=== PATIENT | female | born 1995 | race Caucasian/White ===

== ENCOUNTER 2016-08-21 21:31 | Emergency (ER) | payer MEDICAID ==
[2016-08-21 21:53] VITALS: TEMP 98.2
[2016-08-21] MEDS ORDERED: ALBUTEROL INH PREPACK MDI TAKEHOME ONE (22:28)
--- NOTE | 2016-08-21 22:29 | EDPHY ---
H & P Stated Complaint: STARTED METHADONE, MOM WORRIED ABOUT BREATHING AND LETHARGY Time Seen by Provider: 08/21/16 22:13 HPI/ROS: Chief Complaint: Medication side effect, wheezing HPI: 21-year-old female with a history of chronic narcotic abuse and asthma started methadone 2 days ago. Mom is bring her in today with concerns that she is a little more somnolent than normal. She is also concerned the patient has been having increasing wheezing and difficulty breathing. Patient states that she does not feel particularly unwell. It is important to note that her her boyfriend 5 days ago after a narcotic overdose. Patient denies being suicidal or at this time. No fevers or chills. Has a chronic nonproductive cough. No chest pain. No abdominal pain. No nausea vomiting or diarrhea. ROS: 10 point Review of Systems is negative except as noted in the HPI. PMH: Narcotic dependence Medications: Methadone, 30 mg a day Albuterol (noncompliant) Allergies: No known drug allergies Social History: Positive for smoking smoking, no alcohol, these started methadone for chronic heroin abuse Family History: non-contributory Physical Exam: Gen: Awake, Alert, No Distress HEENT: Nose: no rhinorrhea Eyes: PERRLA, EOMI Mouth: Moist mucosa Neck: Supple, no JVD Chest: nontender, diffuse expiratory wheeze Heart: S1, S2 normal, no murmur Abd: Soft, non-tender, no guarding Back: no CVA tenderness, no midline tenderness Ext: no edema, non-tender Skin: no rash Neuro: CN II-XII intact, Sensation grossly intact, Strength 5/5 in bilateral upper and lower extremities - Personal History LMP (Females 10-55): 15-21 Days Ago Current Tetanus/Diphtheria Vaccine: Yes Current Tetanus Diphtheria and Acellular Pertussis (TDAP): Yes Tetanus Vaccine Date: <10 years - Medical/Surgical History Hx Asthma: Yes Hx Chronic Respiratory Disease: No Hx Diabetes: No Hx Cardiac Disease: No Hx Renal Disease: No Hx Cirrhosis: No Hx Alcoholism: No Hx HIV/AIDS: No Hx Splenectomy or Spleen Trauma: No Other PMH: depression, IVDA METHADONE USE - Social History Smoking Status: Current every day smoker Constitutional: Initial Vital Signs Temperature (C) 36.8 C 08/21/16 21:51 Heart Rate 95 08/21/16 21:51 Respiratory Rate 18 08/21/16 21:51 Blood Pressure 140/84 H 08/21/16 21:51 O2 Sat (%) 97 08/21/16 21:51 O2 Delivery Mode Room Air Allergies/Adverse Reactions: No Known Allergies Allergy (Verified 08/21/16 21:53) Home Medications: Medication Instructions Recorded QUEtiapine FUMARATE [Seroquel 300 mg PO HS #30 tab 04/19/15 300mg (*)] Methadone HCl 30 mg PO 08/21/16 Departure - Departure Disposition: Home, Routine, Self-Care Clinical Impression: Methadone adverse reaction, Asthma Condition: Good Instructions: Methadone (By mouth), Asthma (ED) Additional Instructions: You may use your inhaler 2 puffs every 4 hours as needed for wheeze. Always use a spacer using inhaler. Follow up with your doctor to methadone clinic for dose adjustment at your next appointment. Follow up with your physician for evaluation of your asthma and initiation of a controlled inhaler. Referrals: Soni Del Rio [Primary Care Provider] - As per Instructions
[2016-08-21 23:26] VITALS: BP 130/92; PULSE 88; RESP 16; O2SAT 93
== END 2016-08-21 23:27 | disposition home or self-care (01) ==
DX: J45.909 Unspecified asthma, uncomplicated (principal); T40.3X5A Adverse effect of methadone, initial encounter; F17.200 Nicotine dependence, unspecified, uncomplicated

== ENCOUNTER 2016-09-17 21:39 | Emergency (ER) | payer MEDICAID ==
[2016-09-17] MEDS ORDERED: ONDANSETRON 4 MG/2 ML VIAL ONE (22:15)
[2016-09-17] MEDS ORDERED: LORazepam 2 MG/ML INJ IVP ONE (22:20)
[2016-09-17] MEDS ORDERED: ONDANSETRON 4 MG/2 ML VIAL IVP ONE (22:20)
--- NOTE | 2016-09-17 22:24 | EDPHY ---
H & P Time Seen by Provider: 09/17/16 22:05 HPI/ROS: CHIEF COMPLAINT: "I am withdrawing from heroin" HISTORY OF PRESENT ILLNESS: 21-year-old female in the ER with mother complaining of acute her withdrawal, last used 24 hours ago. [facility] and they recommend she come to the ER prior to returning to the [facility]. She is complaining of nausea, vomiting, abdominal cramping, myalgia, anxiety. REVIEW OF SYSTEMS: A ten point review of systems was performed and is negative with the exception of the items mentioned in the HPI PAST MEDICAL & SURGICAL HISTORY: History of heroin use SOCIAL HISTORY: Last used heroin 24 hours ago PHYSICAL EXAM (Prior to examination, patient consented to physical exam, hands were washed and my usual and customary physical exam procedures followed) 1) GENERAL: Well-developed, well-nourished, alert and oriented. Appears uncomfortable and anxious 2) HEAD: Normocephalic, atraumatic 3) HEENT: Pupils equal, round, reactive to light bilaterally. Sclera anicteric. Nasopharynx, oropharynx, clear, no lesions. Dry mucous membranes 4) NECK: Full range of motion, no meningeal signs. 5) LUNGS: Clear auscultation bilaterally, no wheezes, no rhonchi, no retractions. 6) HEART: Regular rate and rhythm, no murmur, no heave, no gallop. 7) ABDOMEN: No guarding, no rebound, no focal tenderness, negative McBurney's, negative Dotson's, negative Rovsing's, negative peritoneal sign, unable to elicit abdominal pain on exam 8) MUSCULOSKELETAL: Moving all extremities, no focal areas of tenderness, no obvious trauma. No peripheral edema or discoloration. 9) BACK: No CVA tenderness 10) SKIN: positive Pilar erection 11) Psychiatric: Patient is oriented X 3, there is no agitation. DIFFERENTIAL DIAGNOSIS: in no particular include but limited to acute surgical abdominal pathology, acute appendicitis, acute heroin withdrawal Smoking Status: Current every day smoker Constitutional: Initial Vital Signs Temperature (C) 36.7 C 09/17/16 21:43 Heart Rate 102 H 09/17/16 21:43 Respiratory Rate 18 09/17/16 21:43 Blood Pressure 116/73 09/17/16 21:43 O2 Sat (%) 100 09/17/16 21:43 O2 Delivery Mode Room Air Allergies/Adverse Reactions: No Known Allergies Allergy (Verified 08/21/16 21:53) Home Medications: Medication Instructions Recorded QUEtiapine FUMARATE [Seroquel 300 mg PO HS #30 tab 04/19/15 300mg (*)] Methadone HCl 30 mg PO 08/21/16 MDM/Departure - MDM Medications Given: Discontinued Medications Lorazepam (Ativan Injection) 1 mg IVP EDNOW ONE Stop: 09/17/16 22:21 Last Admin: 09/17/16 22:36 Dose: 1 mg Ondansetron HCl (Zofran) 4 mg IVP EDNOW ONE Stop: 09/17/16 22:21 Last Admin: 09/17/16 22:20 Dose: 4 mg ED Course/Re-evaluation: 11:28 p.m.: Re-evaluation, sleeping. Easily woken. Plan will be [facility] to [facility]. Her mother will drive her there. - Depart Disposition: Home, Routine, Self-Care Clinical Impression: Heroin abuse Nausea & vomiting Qualifiers: Vomiting type: unspecified Vomiting Intractability: non-intractable Qualified Code(s): R11.2 - Nausea with vomiting, unspecified Condition: Good Instructions: Acute Nausea and Vomiting (ED) Additional Instructions: Return to the ER if you are unable to keep food or fluid down or if you develop any new symptoms. Referrals: Soni Del Rio [Primary Care Provider] - As per Instructions
[2016-09-17] MEDS ORDERED: CHLORDIAZEPOXIDE 25MG PREPK#6 BTL TAKEHOME ONE (22:30)
[2016-09-18 00:07] VITALS: BP 112/81; PULSE 93; RESP 16; TEMP 98.4; O2SAT 98
== END 2016-09-18 00:08 | disposition home or self-care (01) ==
DX: F11.10 Opioid abuse, uncomplicated (principal); R11.2 Nausea with vomiting, unspecified; F17.200 Nicotine dependence, unspecified, uncomplicated
CPT/HCPCS: 96374; J2060; J2405

== ENCOUNTER 2017-02-11 19:05 | Emergency (ER) | payer MEDICAID ==
[2017-02-11 19:26] VITALS: TEMP 98.6
--- NOTE | 2017-02-11 20:01 | EDPHY ---
H & P Stated Complaint: injected heroin this am, mom wants to make sure she is safe to sleep Time Seen by Provider: 02/11/17 19:21 - Personal History LMP (Females 10-55): 15-21 Days Ago Tetanus Vaccine Date: <10 years - Medical/Surgical History Hx Asthma: Yes Hx Chronic Respiratory Disease: No Hx Diabetes: No Hx Cardiac Disease: No Hx Renal Disease: No Hx Cirrhosis: No Hx Alcoholism: No Hx HIV/AIDS: No Hx Splenectomy or Spleen Trauma: No Other PMH: depression, IV drug use - Social History Smoking Status: Current every day smoker Constitutional: Initial Vital Signs Temperature (C) 37.0 C 02/11/17 19:24 Heart Rate 109 H 02/11/17 19:24 Respiratory Rate 22 H 02/11/17 19:24 Blood Pressure 130/72 H 02/11/17 19:24 O2 Sat (%) 97 02/11/17 19:24 O2 Delivery Mode Room Air Allergies/Adverse Reactions: No Known Allergies Allergy (Verified 02/11/17 19:20) Home Medications: Medication Instructions Recorded QUEtiapine FUMARATE [Seroquel 300 mg PO HS #30 tab 04/19/15 300mg (*)] Naloxone HCl [Narcan] 4 mg NS DAILY PRN #1 spray 02/11/17 Medical Decision Making ED Course/Re-evaluation: CHIEF COMPLAINT: Medical screening HISTORY OF PRESENT ILLNESS: 21-year-old female who last used heroin this morning. Her mother is trying to take her home and she is trying to stop using heroin. She does not want to go to [facility]. She would like to go home. She understands she will most likely withdrawal but she has been through that before. Her mother is concerned that she is in danger and wanted her checked before she takes her home. REVIEW OF SYSTEMS: A 10 point review of systems was performed and is negative with the exception of the elements mentioned in the history of present illness. PHYSICAL EXAM: HR, BP, O2 Sat, RR. Temp noted General Appearance: Alert, well hydrated, appropriate, and non-toxic appearing. Head: Atraumatic without scalp tenderness or obvious injury Eyes: Pupils equal, round, reactive to light and accommodation, EOMI, no trauma , no injection. Ears: Clear bilaterally, no perforation, normal landmarks Nose: Atraumatic, no rhinorrhea, clear. Throat: There is no erythema or exudates, no lesions, normal tonsils, mucus membranes moist. Neck: Supple, 2+ carotid upstroke, nontender, no lymphadenopathy. Respiratory: No retractions, no distress, no wheezes, and no accessory muscle use. Lungs are clear to auscultation bilaterally. Cardiovascular: Regular rate and rhythm, no murmurs, rubs, or gallops. Bilateral carotid, radial, dorsalis pedis, and posterior tibial pulses intact. Good capillary refill all extremities. Gastrointestinal: Abdomen is soft, nontender, non-distended, no masses, no rebound, no guarding, no peritoneal signs. Musculoskeletal: Normal active ROM of all extremities, atraumatic. Neurological: Alert, appropriate, and interactive. The patient has normal DTRs and non-focal cranial nerves, motor, sensory, and cerebellar exam. Skin: No rashes, good turgor, no nodules on palpation. Past medical history: Heroin abuse Past surgical history: Noncontributory Family history: Noncontributory Social history: Single, not employed, abuses opiates, uses cigarettes, uses alcohol and other drugs DIFFERENTIAL DIAGNOSIS: Includes but is not limited to polysubstance abuse, withdrawal symptoms, current heroin use, current alcohol is MEDICAL DECISION MAKING: This patient is sober. I had a long discussion with her mother. She is not actually in danger from the withdrawal of heroin. She refused to go to detox or [facility]. Patient claims that she does not want to use any more. Mother is going to take her home and then try and find her help after her court date tomorrow. I have prescribed nasal Narcan for her mother to have an for the patient to have. She is medically cleared Departure - Departure Disposition: Home, Routine, Self-Care Clinical Impression: Polysubstance abuse Condition: Good Instructions: Polysubstance Abuse (ED) Referrals: NONE *PRIMARY CARE P,. [Primary Care Provider] - As per Instructions Prescriptions: Naloxone HCl [Narcan] 4 mg NS DAILY PRN #1 spray PRN Reason: Poor breathing blue lips
[2017-02-11 20:21] VITALS: BP 129/78; PULSE 107; RESP 16; O2SAT 95
== END 2017-02-11 20:00 | disposition home or self-care (01) ==
LOC: CED 19:05
DX: F19.10 Other psychoactive substance abuse, uncomplicated (principal); J45.909 Unspecified asthma, uncomplicated; F17.200 Nicotine dependence, unspecified, uncomplicated

== ENCOUNTER 2017-03-03 11:59 | Emergency (ER) | payer MEDICAID ==
[2017-03-03 12:18] VITALS: BP 124/86; PULSE 90; RESP 16; TEMP 98.1; O2SAT 97
--- NOTE | 2017-03-03 12:27 | EDPHY ---
H & P Stated Complaint: std and hep c request, heroin with used needle few weeks ago Time Seen by Provider: 03/03/17 12:19 HPI/ROS: CHIEF COMPLAINT: Requests testing HISTORY OF PRESENT ILLNESS: The patient is a 21-year-old female who is now sober for the last week after using multiple drugs heavily including IV narcotics and having multiple sex partners. She states that she feels generally tired and fatigued and slightly nauseous. Her mom thinks this is from withdrawal. Mom states that she had these similar symptoms when she withdrew. Patient is requesting testing for hepatitis C, HIV and STDs. She is currently not having any vaginal bleeding discharge or discomfort. REVIEW OF SYSTEMS: Constitutional: Fatigue, no fevers EENTM: denies: blurred vision, double vision, nose congestion Respiratory: denies: cough, shortness of breath Cardiac: denies: chest pain, irregular heart rate, lightheadedness, palpitations Gastrointestinal/Abdominal: denies: abdominal pain, diarrhea, nausea, vomiting, blood streaked stools Genitourinary: denies: dysuria, frequency, hematuria, pain Musculoskeletal: denies: joint pain, muscle pain Skin: denies: lesions, rash, jaundice, bruising Neurological: denies: headache, numbness, paresthesia, tingling, dizziness, weakness Hematologic/Lymphatic: denies: blood clots, easy bleeding, easy bruising Immunologic/allergic: denies: HIV/AIDS, transplant EXAM: GENERAL: Well-appearing, well-nourished and in no acute distress. HEAD: Atraumatic, normocephalic. EYES: Pupils equal round and reactive to light, extraocular movements intact, sclera anicteric, conjunctiva are normal. ENT: TMs normal, nares patent, oropharynx clear without exudates. Moist mucous membranes. NECK: Normal range of motion, supple without lymphadenopathy or JVD. LUNGS: Breath sounds clear to auscultation bilaterally and equal. No wheezes rales or rhonchi. HEART: Regular rate and rhythm without murmurs, rubs or gallops. ABDOMEN: Soft, nontender, normoactive bowel sounds. No guarding, no rebound. No masses appreciated. BACK: No CVA tenderness, no spinal tenderness, step-offs or deformities EXTREMITIES: Normal range of motion, no pitting or edema. No clubbing or cyanosis. NEUROLOGICAL: Cranial nerves II through XII grossly intact. Normal speech, normal gait. 5/5 strength, normal movement in all extremities, normal sensation PSYCH: Normal mood, normal affect. SKIN: Warm, dry, normal turgor, no visible rashes or lesions. Source: Patient Exam Limitations: No limitations - Personal History LMP (Females 10-55): 15-21 Days Ago Current Tetanus Diphtheria and Acellular Pertussis (TDAP): Yes Tetanus Vaccine Date: <10 years - Medical/Surgical History Hx Asthma: Yes Hx Chronic Respiratory Disease: No Hx Diabetes: No Hx Cardiac Disease: No Hx Renal Disease: No Hx Cirrhosis: No Hx Alcoholism: No Hx HIV/AIDS: No Hx Splenectomy or Spleen Trauma: No Other PMH: depression, IV drug use/heroin/meth smoke thc - Family History Significant Family History: No pertinent family hx - Social History Smoking Status: Current every day smoker Alcohol Use: Heavy Drug Use: Cocaine, Heroin, Marijuana Constitutional: Initial Vital Signs Temperature (C) 36.7 C 03/03/17 12:12 Heart Rate 90 03/03/17 12:12 Respiratory Rate 16 03/03/17 12:12 Blood Pressure 124/86 H 03/03/17 12:12 O2 Sat (%) 97 03/03/17 12:12 O2 Delivery Mode Room Air Allergies/Adverse Reactions: No Known Allergies Allergy (Verified 03/03/17 12:18) Home Medications: Medication Instructions Recorded QUEtiapine FUMARATE [Seroquel 300 mg PO HS #30 tab 04/19/15 300mg (*)] Vivitrol 03/03/17 Medical Decision Making ED Course/Re-evaluation: The patient is likely suffering mild withdrawal symptoms. I did offer to do STD testing although she is not currently having any symptoms. The hepatitis C and HIV test will need to be done at a primary care physician's office however. In the and she and her mom decided to forego testing here in simply go to the regular doctor. They tried to get in today but were told they did could not get an appointment until tomorrow. They will go tomorrow and make these request. They declined further workup or treatment. they do ask for it note for work stating that they were here. Differential Diagnosis: Partial list of the Differential diagnosis considered include but were not limited to; polysubstance abuse, withdrawal and although unlikely based on the history and physical exam, I also considered hepatitis, HIV, STD, . I discussed these differential diagnoses and the plan with the patient as well as the usual and expected course. The patient understands that the diagnosis is provisional and that in medicine we are not always correct and that further workup is often warranted. Usual and customary warnings were given. All of the patient's questions were answered. The patient was instructed to return to the emergency department should the symptoms at all worsen or return, otherwise to followup with the physician as we discussed. Departure - Departure Disposition: Home, Routine, Self-Care Clinical Impression: Withdrawal syndrome Qualifiers: Substance type: other psychoactive substance Qualified Code(s): F19.939 - Other psychoactive substance use, unspecified with withdrawal, unspecified Condition: Fair Instructions: Polysubstance Abuse (ED) Referrals: [facility],. [Primary Care Provider] - As per Instructions Stand Alone Forms: Statement of Treatment
== END 2017-03-03 12:30 | disposition home or self-care (01) ==
LOC: CED 11:59
DX: F19.939 Other psychoactive substance use, unspecified with withdrawal, unspecified (principal); F17.200 Nicotine dependence, unspecified, uncomplicated; J45.909 Unspecified asthma, uncomplicated

== ENCOUNTER 2017-05-19 14:53 | Emergency (ER) | payer MEDICAID ==
[2017-05-19 15:06] VITALS: BP 133/69; PULSE 92; RESP 18; TEMP 98.2; O2SAT 97
--- NOTE | 2017-05-19 15:30 | EDPHY ---
H & P Time Seen by Provider: 05/19/17 15:00 HPI/ROS: This patient has a sore throat 4/10 intensity achy in nature. She describes onset a few days ago with worsening over the past 24 hr. She still able tolerate p.o. intake without difficulty. She has associated nasal congestion and a headache that feels like it is originating from her frontal sinus to her described as pressure in nature 4/10 intensity left more than right frontal sinus. She had subjective fevers last night with no other associated symptoms. Her mother brought her in by private vehicle for evaluation. ROS: No high fevers or chills. No significant fatigue. No other constitutional symptoms HEENT: No ear pain. No change in hearing. No change in voice. Pulmonary: No coughing. Cardiovascular: No complaints GI: No nausea vomiting or abdominal pain : No complaints Integumentary: No skin rash Musculoskeletal: No arthralgias. 10 point ROS is otherwise negative Social History: Former IVDA-clean for 90 days Smoking Status: Current every day smoker Physical Exam: Physical Exam Vital signs are normal. General: No acute distress HEENT: Nose: Clear discharge bilaterally. Mild left frontal sinus tenderness to percussion. Ears: External canals and tympanic membranes are clear with no erythema or abnormal findings bilaterally. Oropharynx: Mild erythema with no exudates. No dysphonia. No drooling or stridor. Eyes: Pupils equal and react to light. Extraocular motions are intact. Neck: Supple with no meningismus. No lymphadenopathy Lungs: Very faint wheeze on the right side with no rales or rhonchi. No increased work of breathing. Cardiac: Regular rate and rhythm with no murmur gallop or rub Skin: No rash or pallor. Neuro: Alert with no focal deficits noted. Initial differential diagnosis: Viral URI with viral pharyngitis, strep pharyngitis, doubt bacterial sinusitis. Constitutional: Initial Vital Signs Temperature (C) 36.8 C 05/19/17 15:03 Heart Rate 92 05/19/17 15:03 Respiratory Rate 18 05/19/17 15:03 Blood Pressure 133/69 H 05/19/17 15:03 O2 Sat (%) 97 05/19/17 15:03 O2 Delivery Mode Room Air Allergies/Adverse Reactions: No Known Allergies Allergy (Verified 03/03/17 12:18) Home Medications: Medication Instructions Recorded QUEtiapine FUMARATE [Seroquel 300 mg PO HS #30 tab 04/19/15 300mg (*)] Vivitrol 03/03/17 Fluticasone Nasal [Flonase Nasal 2 sprays NASAL DAILY #1 mdi 05/19/17 [place] (RX)] MDM/Departure - MDM Diagnostics: Rapid strep is negative ED Course/Re-evaluation: Rapid strep is negative. I counseled patient regarding viral URI and viral pharyngitis. She is very faint wheeze and reports that as a child she has asthma but no significant exacerbations last couple years. She does still have an albuterol inhaler at home which she states she will use for any development of wheezing or coughing. Patient appears clinically well with no "red flag findings "she understands need to return should she develop any significant worsening despite treatment plan. - Depart Disposition: Home, Routine, Self-Care Clinical Impression: Viral pharyngitis, Viral URI Condition: Good Instructions: How to Stop Smoking (ED), Pharyngitis (ED) Additional Instructions: Diagnosis: Viral pharyngitis 2. Viral upper respiratory infection Your rapid strep test is negative today Plan: Humidifier Guaifenesin mucolytic Flonase steroid nasal spray to help relieve the sinus pressure Ibuprofen for discomfort and also to reduce the swelling. Symptoms should improve over the next 3-7 days. Quit smoking. Use your albuterol inhaler if he developed more wheezing or fevers develop a cough. Return for any significant worsening despite the treatment plan. Stand Alone Forms: Work Excuse Prescriptions: Fluticasone Nasal [Flonase Nasal [place] (RX)] 2 sprays NASAL DAILY #1 mdi Referrals: Doctor Not,On Staff, MD [Primary Care Provider] - As per Instructions
== END 2017-05-19 15:36 | disposition home or self-care (01) ==
LOC: CED 14:53
DX: J02.8 Acute pharyngitis due to other specified organisms (principal); B97.89 Other viral agents as the cause of diseases classified elsewhere; J06.9 Acute upper respiratory infection, unspecified; F17.200 Nicotine dependence, unspecified, uncomplicated
CPT/HCPCS: 87880-PO

== ENCOUNTER 2017-05-27 19:50 | Emergency (ER) | payer MEDICAID ==
[2017-05-27 20:07] VITALS: BP 150/92; PULSE 83; RESP 16; TEMP 98.4; O2SAT 97
[2017-05-27] MEDS ORDERED: LEVALBUTEROL 1.25 MG/3 ML DEYVIAL IH ONE (20:07)
--- NOTE | 2017-05-27 20:14 | EDPHY ---
H & P Time Seen by Provider: 05/27/17 19:57 HPI/ROS: I saw this patient here 8 days ago for viral URI and viral pharyngitis. She had mild sinus headache at that time from nasal congestion in she presents now with a cough. I prescribed Flonase and she reports that she had resolution of her sinus pressure and headache with that treatment. She now has minimal coryza. However, over the past 2 days she has developed a cough occasionally productive of sputum. She reports a bronchial pain when she coughs and has mild wheezing. She had history of asthma as a child but has not used inhalers for a few years. Her mother drove her here by private vehicle for evaluation of her symptoms. ROS: No fevers or chills. No other constitutional symptoms HEENT: No sore throat at this point. No ear pain. No sinus pain. Pulmonary: No pleuritic pain. No hemoptysis. No respiratory distress Cardiovascular: No heart palpitations lightheadedness or leg swelling. GI: No vomiting. No nausea. No diarrhea. No abdominal pain. Integumentary: No skin rash Psychiatric: No complaints. No insomnia. 7 point ROS is otherwise negative. Past Medical/Surgical History: Mild asthma Former IVDA Psychiatric Smoking Status: Current every day smoker Physical Exam: General Appearance: Alert, no distress. Eyes: Pupils equal and round no pallor or injection. ENT, Mouth: Mucous membranes moist. Respiratory: Faint wheeze bilaterally. No rales or rhonchi are appreciated. No respiratory distress or increased work of breathing. Cardiovascular: Regular rate and rhythm. No murmur gallop rub. No peripheral edema. Neurological: GCS of 15 without focal deficits. Skin: Warm and dry, no rashes. Extremities are symmetrical, full range of motion. Psychiatric: Mood and affect are normal DIFFERENTIAL DIAGNOSIS: After history and physical exam differential diagnosis was considered for URI with asthma exacerbation, viral bronchitis, doubt pneumonia Constitutional: Initial Vital Signs Temperature (C) 36.9 C 05/27/17 20:05 Heart Rate 83 05/27/17 20:05 Respiratory Rate 16 05/27/17 20:05 Blood Pressure 150/92 H 05/27/17 20:05 O2 Sat (%) 97 05/27/17 20:05 O2 Delivery Mode Room Air Allergies/Adverse Reactions: No Known Allergies Allergy (Verified 05/27/17 20:02) Home Medications: Medication Instructions Recorded QUEtiapine FUMARATE [Seroquel 300 mg PO HS #30 tab 04/19/15 300mg (*)] Fluticasone Nasal [Flonase Nasal 2 sprays NASAL DAILY #1 mdi 05/19/17 [place] (RX)] Albuterol Hfa Anes Only [Proair 2 puffs IH Q4 PRN #1 mdi 05/27/17 Hfa Icu (*)] Albuterol Hfa Anes Only [Proair 60 puffs IH 05/27/17 Hfa Icu (*)] Azithromycin [Zithromax] 250 mg PO DAILY #4 tab 05/27/17 Fluticasone Hfa 220 Mcg [Flovent 2 puffs IH DAILY #1 mdi 05/27/17 220 MCG Hfa MDI (*)] Ibuprofen 05/27/17 Medroxyprogesterone Acet 150 mg IM 05/27/17 [Depo-Provera] MDM/Departure - MDM Medications Given: Discontinued Medications Levalbuterol (Xopenex 1.25mg Neb) 1.25 mg IH EDNOW ONE Stop: 05/27/17 20:08 Last Admin: 05/27/17 20:17 Dose: 1.25 mg ED Course/Re-evaluation: Initial peak flow of 340 predicted of 475 Xopenex neb albuterol makes her very tremulous and anxious per her report) No significant improvement with the Xopenex. Discussion: Given lack of significant bronchospasm currently but some wheezing and decreased peak flow, patient's findings are consistent primarily with bronchitis. I counseled regarding this. Given that she is a smoker will cover her with macrolide antibiotic in addition to the plan for her to continue her albuterol and start Flovent steroid inhaler in addition. Gave her a peak flow meter to take home to monitor her peak flow. She will follow up with [facility] for any ongoing symptoms and she understands the need to return should she have any significant worsening of symptoms despite the treatment plan - Depart Disposition: Home, Routine, Self-Care Clinical Impression: Acute bronchitis Qualifiers: Bronchitis organism: unspecified organism Qualified Code(s): J20.9 - Acute bronchitis, unspecified Asthma Qualifiers: Asthma severity: mild Asthma persistence: intermittent Asthma complication type : uncomplicated Qualified Code(s): J45.20 - Mild intermittent asthma, uncomplicated Condition: Good Instructions: How to Stop Smoking (ED), Acute Bronchitis (ED), Asthma (ED) Additional Instructions: Diagnoses: 1. Acute bronchitis 2. History of asthma Plan: Humidifier Albuterol inhaler with spacer for cough, wheeze or shortness of breath Flovent inhaler daily for the next 10-14 days Zithromax antibiotic No work tomorrow Monitor your peak flow with treatment. When her feeling well you should be 450- 475 Return for any significant worsening despite treatment plan Stand Alone Forms: Work Excuse Prescriptions: Albuterol Hfa Anes Only [Proair Hfa Icu (*)] 2 puffs IH Q4 PRN #1 mdi PRN Reason: Wheezing Azithromycin [Zithromax] 250 mg PO DAILY #4 tab Fluticasone Hfa 220 Mcg [Flovent 220 MCG Hfa MDI (*)] 2 puffs IH DAILY #1 mdi Referrals: [facility],. [Primary Care Provider] - As per Instructions
[2017-05-27] MEDS ORDERED: AZITHROMYCIN 250 MG TAB PO ONE (20:46)
== END 2017-05-27 21:00 | disposition home or self-care (01) ==
LOC: CED 19:50
DX: J20.9 Acute bronchitis, unspecified (principal); J45.20 Mild intermittent asthma, uncomplicated; F17.200 Nicotine dependence, unspecified, uncomplicated

== ENCOUNTER → 2017-09-03 | Emergency (ER) | payer MEDICAID ==
[~2017-09-03] MED LIST: BENZONATATE 100 MG CAP PO ONE
[2017-09-03 22:01] VITALS: BP 121/83
--- NOTE | 2017-09-03 22:04 | EDPHY ---
H & P Time Seen by Provider: 09/03/17 21:54 HPI/ROS: CHIEF COMPLAINT: Cough, runny nose HISTORY OF PRESENT ILLNESS: The patient is a 22-year-old female whose mom brings her to the emergency department complaining of a persistent cough. She also has a watery runny nose and wonders if it is from allergies because she works outside. Mom states that she also has a history of asthma. She has not had any difficulty breathing. No fevers. REVIEW OF SYSTEMS: Constitutional: See HPI EENTM: denies: See HPI Respiratory: See HPI Cardiac: denies: chest pain, irregular heart rate, lightheadedness, palpitations Gastrointestinal/Abdominal: denies: abdominal pain, diarrhea, nausea, vomiting, blood streaked stools Genitourinary: denies: dysuria, frequency, hematuria, pain Musculoskeletal: denies: joint pain, muscle pain Skin: denies: lesions, rash, jaundice, bruising Neurological: denies: headache, numbness, paresthesia, tingling, dizziness, weakness Hematologic/Lymphatic: denies: blood clots, easy bleeding, easy bruising Immunologic/allergic: denies: HIV/AIDS, transplant EXAM: GENERAL: Well-appearing, well-nourished and in no acute distress. HEAD: Atraumatic, normocephalic. EYES: Pupils equal round and reactive to light, extraocular movements intact, sclera anicteric, conjunctiva are normal. ENT: TMs normal, nares patent, oropharynx clear without exudates. Moist mucous membranes. NECK: Normal range of motion, supple without lymphadenopathy or JVD. LUNGS: Breath sounds clear to auscultation bilaterally and equal. No wheezes rales or rhonchi. HEART: Regular rate and rhythm without murmurs, rubs or gallops. ABDOMEN: Soft, nontender, normoactive bowel sounds. No guarding, no rebound. No masses appreciated. BACK: No CVA tenderness, no spinal tenderness, step-offs or deformities EXTREMITIES: Normal range of motion, no pitting or edema. No clubbing or cyanosis. NEUROLOGICAL: Cranial nerves II through XII grossly intact. Normal speech, normal gait. 5/5 strength, normal movement in all extremities, normal sensation PSYCH: Normal mood, normal affect. SKIN: Warm, dry, normal turgor, no visible rashes or lesions. Source: Patient, Family Exam Limitations: No limitations - Personal History Tetanus Vaccine Date: <10 years - Medical/Surgical History Hx Asthma: Yes Hx Chronic Respiratory Disease: No Hx Diabetes: No Hx Cardiac Disease: No Hx Renal Disease: No Hx Cirrhosis: No Hx Alcoholism: No Hx HIV/AIDS: No Hx Splenectomy or Spleen Trauma: No Other PMH: Asthma, depression, IV drug use/heroin/meth smoke thc - Family History Significant Family History: No pertinent family hx - Social History Smoking Status: Current every day smoker Alcohol Use: Sober Drug Use: Other Constitutional: Initial Vital Signs Temperature (C) 37.0 C 09/03/17 21:56 Heart Rate 90 09/03/17 21:56 Respiratory Rate 16 09/03/17 21:56 Blood Pressure 121/83 H 09/03/17 21:56 O2 Sat (%) 96 09/03/17 21:56 O2 Delivery Mode Room Air Allergies/Adverse Reactions: No Known Allergies Allergy (Verified 09/03/17 21:52) Home Medications: Medication Instructions Recorded QUEtiapine FUMARATE [Seroquel 300 mg PO HS #30 tab 04/19/15 300mg (*)] Albuterol Hfa Anes Only [Proair 60 puffs IH 05/27/17 Hfa Icu (*)] Medroxyprogesterone Acet 150 mg IM 05/27/17 [Depo-Provera] Benzonatate [Tessalon Pearles (RX)] 100 mg PO BID #10 cap 09/03/17 Cetirizine HCl/Pseudoephedrine 1 each PO BID #20 tab.er.12h 09/03/17 [Zyrtec-D Tablet] Vivatrol 09/03/17 Wellbutrin 150mg SR (*) 09/03/17 diphenhydrAMINE [Benadryl 50 MG 50 mg PO Q4-6PRN PRN #30 cap 09/03/17 (OTC)] Medical Decision Making ED Course/Re-evaluation: The patient is well appearing. No wheezes on exam, dry cough and runny nose consistent with postnasal drip. We discussed antihistamines. Mom prefers Zyrtec. I will also prescribe her cough syrup. They declined x-ray at this time. Differential Diagnosis: Partial list of the Differential diagnosis considered include but were not limited to; postnasal drip, allergic rhinitis, bronchitis and although unlikely based on the history and physical exam, I also considered pneumonia, asthma exacerbation. I discussed these differential diagnoses and the plan with the patient as well as the usual and expected course. The patient understands that the diagnosis is provisional and that in medicine we are not always correct and that further workup is often warranted. Usual and customary warnings were given. All of the patient's questions were answered. The patient was instructed to return to the emergency department should the symptoms at all worsen or return, otherwise to followup with the physician as we discussed. - Data Points Medications Given: Discontinued Medications Benzonatate (Tessalon Pearles) 100 mg PO EDNOW ONE Stop: 09/03/17 22:06 Last Admin: 09/03/17 22:12 Dose: 100 mg Departure - Departure Disposition: Home, Routine, Self-Care Clinical Impression: Cough in adult Allergic rhinitis Qualifiers: Allergic rhinitis trigger: other Allergic rhinitis seasonality: unspecified seasonality Qualified Code(s): J30.89 - Other allergic rhinitis Condition: Fair Instructions: Benzonatate (By mouth), Diphenhydramine (By mouth), Cetirizine/ Pseudoephedrine (By mouth), Allergic Rhinitis (ED), Postnasal Drip (DC) Referrals: Selene Rich MD [[facility] [place] Primary Care Provider] - As per Instructions Stand Alone Forms: Work Excuse Prescriptions: Benzonatate [Tessalon Pearles (RX)] 100 mg PO BID #10 cap Cetirizine HCl/Pseudoephedrine [Zyrtec-D Tablet] 1 each PO BID #20 tab.er.12h diphenhydrAMINE [Benadryl 50 MG (OTC)] 50 mg PO Q4-6PRN PRN #30 cap PRN Reason: Itching
== END | disposition home or self-care (01) ==
LOC: CED 21:48
DX: J30.89 Other allergic rhinitis (principal); F17.200 Nicotine dependence, unspecified, uncomplicated

== ENCOUNTER 2018-03-04 20:12 | Emergency (ER) | payer MEDICAID ==
[2018-03-04] MEDS ORDERED: NS 1,000 ML IV ONE (20:35)
--- NOTE | 2018-03-04 20:38 | EDPHY ---
H & P Stated Complaint: Burning on urination x2 days. Time Seen by Provider: 03/04/18 20:17 HPI/ROS: Chief Complaint: Burning with urination, flu-like symptoms HPI: 22-year-old woman presenting with 1 day of urinary urgency and burning with urination. Patient has had flu-like symptoms for the last 3 days with nausea, diarrhea, body aches, fevers and chills. Denies any cough or shortness of breath. She does have a history of IV drug use and was using heroin foreign 5 days ago. Has had some chills but has not checked her temperature at home. Last menstrual. Is several months, she has a Depakote shot. No vaginal bleeding or discharge. No lightheadedness or fainting. No abdominal pain. Some pain with urination. ROS: 10 systems were reviewed and were negative except those elements noted in the HPI. PMH: Depression, asthma, IV drug abuse Social History: Positive smoking, no alcohol, recent heroin use Family History: non-contributory Physical Exam: Gen: Awake, Alert, No Distress, tachycardic, afebrile HEENT: Nose: no rhinorrhea Eyes: PERRLA, EOMI Mouth: Moist mucosa Neck: Supple, no JVD Chest: nontender, lungs clear to auscultation Heart: S1, S2 normal, tachycardic, no murmur Abd: Soft, non-tender, no guarding Back: no CVA tenderness, no midline tenderness Ext: no edema, non-tender Skin: no rash Neuro: CN II-XII intact, Sensation grossly intact, Strength 5/5 in bilateral upper and lower extremities - Personal History LMP (Females 10-55): 1-7 Days Ago Current Tetanus/Diphtheria Vaccine: Yes Current Tetanus Diphtheria and Acellular Pertussis (TDAP): Yes Tetanus Vaccine Date: <10 years - Medical/Surgical History Hx Asthma: Yes Hx Chronic Respiratory Disease: No Hx Diabetes: No Hx Cardiac Disease: No Hx Renal Disease: No Hx Cirrhosis: No Hx Alcoholism: No Hx HIV/AIDS: No Hx Splenectomy or Spleen Trauma: No Other PMH: Asthma, depression, IV drug use/heroin/meth smoke thc, PTSD - Social History Smoking Status: Current every day smoker Constitutional: Initial Vital Signs Temperature (C) 36.8 C 03/04/18 20:19 Heart Rate 116 H 03/04/18 20:19 Respiratory Rate 16 03/04/18 20:19 Blood Pressure 140/89 H 03/04/18 20:19 O2 Sat (%) 94 03/04/18 20:19 O2 Delivery Mode Nasal Cannula O2 (L/minute) 2 Allergies/Adverse Reactions: No Known Allergies Allergy (Verified 09/03/17 21:52) Home Medications: Medication Instructions Recorded QUEtiapine FUMARATE [Seroquel 300 mg PO HS #30 tab 04/19/15 300mg (*)] Albuterol Hfa Anes Only [Proair 60 puffs IH 05/27/17 Hfa Icu (*)] Medroxyprogesterone Acet 150 mg IM 05/27/17 [Depo-Provera] Wellbutrin 150mg SR (*) 09/03/17 Nitrofurantoin Monohyd/M-Cryst 100 mg PO BID #8 capsule 03/04/18 [Macrobid 100 mg Capsule] Medical Decision Making ED Course/Re-evaluation: Patient is now admitting that she last used heroin 2 hr prior to presentation. She was worried that she would be treated as a drug seeker and she told me this initially. She is afebrile. Her tachycardia has resolved. She is getting IV fluids. Awaiting blood work and urine results. Patient's CBC and chemistry are normal. She is resting comfortably. She is under the influence of opioids at this time. Patient is improved. She is not appear septic or meet SIRS criteria at this time. Symptoms consistent with 0. Intoxication. She is hydrated here. Heart rate is improved. She is afebrile. She has normal white count. Will start her on Macrobid for urinary tract infection symptoms. I do not see any evidence of bacteremia at this time. She has been observed for any complications forearm opioid use and is maintaining her airway and without anydifficulties - Data Points Laboratory Results: 03/04/18 21:11 POC Sodium 142 mEq/L mEq/L (135-145) POC Potassium 3.4 mEq/L mEq/L (3.3-5.0) POC Chloride 107.0 mEq/L mEq/L (97-110) POC Total CO2 23 mEq/L mEq/L (22-31) POC BUN 15 mg/dL mg/dL (7-23) POC Creatinine 0.9 mg/dL mg/dL (0.6-1.0) POC Glucose 88 mg/dL mg/dL (70-100) POC Calcium 9.7 mg/dL mg/dL (8.5-10.4) Medications Given: Discontinued Medications Acetaminophen (Tylenol) 1,000 mg PO EDNOW ONE Stop: 03/04/18 20:44 Last Admin: 03/04/18 20:46 Dose: 1,000 mg Sodium Chloride (Ns) 1,000 mls @ 0 mls/hr IV ONCE ONE PRN Reason: Wide Open Stop: 03/04/18 20:36 Last Admin: 03/04/18 20:47 Dose: 1,000 mls Ondansetron HCl (Zofran) 4 mg IVP EDNOW ONE Stop: 03/04/18 22:05 Last Admin: 03/04/18 22:07 Dose: 4 mg Point of Care Test Results: CBC CBC Collection Date 03/04/18 CBC Collection Time 21:10 WBC 7.9 RBC 4.48 HGB 13.8 HCT 39.9 PLT 180 Neut # 6.2 Neut 78.6 LYMPH # 1.1 LYMPH 13.6 Other WBC # 0.6 Other WBC 7.8 MCV 89.1 Chemistry 03/04/18 21:11 POC Sodium 142 mEq/L mEq/L (135-145) POC Potassium 3.4 mEq/L mEq/L (3.3-5.0) POC Chloride 107.0 mEq/L mEq/L (97-110) POC Total CO2 23 mEq/L mEq/L (22-31) POC BUN 15 mg/dL mg/dL (7-23) POC Creatinine 0.9 mg/dL mg/dL (0.6-1.0) POC Glucose 88 mg/dL mg/dL (70-100) POC Calcium 9.7 mg/dL mg/dL (8.5-10.4) Influenza PCR Flu Nasal Swab Collection Date 03/04/18 Flu Nasal Swab Collection Time 21:10 Influenza A Result Not Detected Influenza B Result Not Detected Departure - Departure Disposition: Home, Routine, Self-Care Clinical Impression: Urinary tract infection, Opioid abuse Condition: Good Instructions: Urinary Tract Infection in Women (ED), Opioid Use Disorder (ED), Nitrofurantoin (By mouth) Additional Instructions: Please seek help to discontinue using opioids. Please take your full course of antibiotics. Follow up with primary care physician in 3-4 days if her symptoms are not improving. Return to the emergency department for uncontrolled nausea vomiting, fevers, chills, or any other concerns. Referrals: [facility],. [Clinic] - As per Instructions Prescriptions: Nitrofurantoin Monohyd/M-Cryst [Macrobid 100 mg Capsule] 100 mg PO BID #8 capsule
[2018-03-04] MEDS ORDERED: ACETAMINOPHEN 500 MG TAB PO ONE (20:43)
[2018-03-04] MEDS ORDERED: ONDANSETRON 4 MG/2 ML VIAL IVP ONE (22:04)
[2018-03-04] MEDS ORDERED: NITROFURANTOIN 100MG PREPACK#2 BTL TAKEHOME ONE (22:08)
[2018-03-04 22:25] VITALS: BP 130/77
[2018-03-04] MEDS ORDERED: ONDANSETRON 4MG PREPACK#2 BTL TAKEHOME ONE (22:31)
== END 2018-03-04 22:45 | disposition home or self-care (01) ==
LOC: CED 20:12
DX: N39.0 Urinary tract infection, site not specified (principal); F11.10 Opioid abuse, uncomplicated
CPT/HCPCS: 80048-PO; 96374; J2405

== ENCOUNTER 2018-03-21 07:34 | Emergency (ER) | payer MEDICAID ==
--- NOTE | 2018-03-21 07:36 | EDPHY ---
H & P Time Seen by Provider: 03/21/18 07:35 Constitutional: Initial Vital Signs Temperature (C) 36.8 C 03/21/18 07:35 Heart Rate 74 03/21/18 07:35 Respiratory Rate 18 03/21/18 07:35 Blood Pressure 171/104 H 03/21/18 07:35 O2 Sat (%) 97 03/21/18 07:35 O2 Delivery Mode Room Air Allergies/Adverse Reactions: No Known Allergies Allergy (Verified 03/21/18 07:38) Home Medications: Medication Instructions Recorded QUEtiapine FUMARATE [Seroquel 300 mg PO HS #30 tab 04/19/15 300mg (*)] Albuterol Hfa Anes Only [Proair 60 puffs IH 05/27/17 Hfa Icu (*)] Medroxyprogesterone Acet 150 mg IM 05/27/17 [Depo-Provera] Wellbutrin 150mg SR (*) 09/03/17 Nitrofurantoin Monohyd/M-Cryst 100 mg PO BID #8 capsule 03/04/18 [Macrobid 100 mg Capsule] Ondansetron Odt [Zofran Odt 4 mg 4 mg PO Q4 PRN #10 tab 03/21/18 (RX)] Medical Decision Making ED Course/Re-evaluation: CHIEF COMPLAINT: Nausea and vomiting HISTORY OF PRESENT ILLNESS: The patient is a 22 y/o female with a history of IV heroin abuse arriving via EMS complaining of nausea, vomiting, and diarrhea. She recently had an 18 day heroin damon and subsequently went into detox. She last used heroin on Thursday, 6 days ago. Yesterday she had a Vivitrol shot without any immediate side effects. Starting at 04:00 today, 3.5 hours ago, she started to have sudden onset nausea and vomiting. These symptoms are similar to prior detox symptoms, but since she has already gone through detox she became concerned. She would also like infectious disease testing as she has not had any tests in a while. She denies history of abdominal surgery. No headache, chest pain, shortness of breath, urinary complaints, numbness, paresthesias, fevers. REVIEW OF SYSTEMS: A comprehensive 10 system review of systems is otherwise negative aside from the elements mentioned in the history of present illness and medical decision making. PHYSICAL EXAM: HR, BP, O2 Sat, RR. Temp noted General Appearance: Alert, well hydrated, appropriate, and non-toxic appearing. Head: Atraumatic without scalp tenderness or obvious injury Eyes: Pupils equal, round, reactive to light and accommodation, EOMI, no trauma , no injection. Ears: Clear bilaterally, no perforation, normal landmarks Nose: Atraumatic, no rhinorrhea, clear. Throat: There is no erythema or exudates, no lesions, normal tonsils, mucus membranes dry. Neck: Supple, 2+ carotid upstroke, nontender, no lymphadenopathy. Respiratory: No retractions, no distress, no wheezes, and no accessory muscle use. Lungs are clear to auscultation bilaterally. Cardiovascular: Regular rate and rhythm, no murmurs, rubs, or gallops. Bilateral carotid, radial, dorsalis pedis, and posterior tibial pulses intact. Good capillary refill all extremities. Gastrointestinal: Abdomen is soft, nontender, non-distended, no masses, no rebound, no guarding, no peritoneal signs. Musculoskeletal: Normal active ROM of all extremities, atraumatic. Neurological: Alert, appropriate, and interactive. The patient has normal DTRs and non-focal cranial nerves, motor, sensory, and cerebellar exam. Skin: No rashes, good turgor, no nodules on palpation. Past medical history: IV Heroin abuse Past surgical history: Denies Family history: Denies Social history: Lives in [place], employed, single DIAGNOSTICS/PROCEDURES/CRITICAL CARE TIME: Not indicated DIFFERENTIAL DIAGNOSIS: The differential diagnosis for the patient's nausea and vomiting included but was not limited to gastroenteritis, gastritis, appendicitis, and medication side effect. MEDICAL DECISION MAKING: The patient is a 22 y/o female with a history of IV heroin abuse arriving via EMS presenting with nausea, vomiting, and diarrhea onset at 4:00, 3.5 hours ago. She went through detox 6 days ago and received a Vivitrol shot yesterday. On exe, she has a soft and benign abdomen. Her mucus membranes are dry. Labs ordered including infectious disease labs; 2L IV NS and 4mg IV Zofran. 0929: Patient passed PO challenge. She is feeling much better after medication; I will discharge her home with Zofran. Her infectious disease tests are still pending. I have advised her to follow up with her PCP. Return precautions provided; patient is comfortable with this plan. - Data Points Laboratory Results: 03/21/18 07:45 Beta HCG, Qual NEGATIVE Hepatitis A IgM Ab Pending Hep Bs Antigen Pending Hep B Core IgM Ab Pending Hepatitis C Antibody Pending HIV 1&2 Antibody Pending Medications Given: Discontinued Medications Sodium Chloride (Ns) 1,000 mls @ 0 mls/hr IV EDNOW ONE; Wide Open PRN Reason: Protocol Stop: 03/21/18 07:39 Last Admin: 03/21/18 07:49 Dose: 1,000 mls Sodium Chloride (Ns) 1,000 mls @ 0 mls/hr IV EDNOW ONE; Wide Open PRN Reason: Protocol Stop: 03/21/18 07:39 Last Admin: 03/21/18 07:50 Dose: Not Given Ibuprofen (Motrin) 800 mg PO EDNOW ONE Stop: 03/21/18 08:46 Last Admin: 03/21/18 08:47 Dose: Not Given Ondansetron HCl (Zofran) 4 mg IVP EDNOW ONE Stop: 03/21/18 07:39 Last Admin: 03/21/18 07:49 Dose: 4 mg Departure - Departure Disposition: Home, Routine, Self-Care Clinical Impression: Gastroenteritis Nausea and vomiting Qualifiers: Vomiting type: unspecified Vomiting Intractability: intractable Qualified Code( s): R11.2 - Nausea with vomiting, unspecified Condition: Good Instructions: Ondansetron (By mouth), Gastroenteritis (ED), Acute Nausea and Vomiting (ED) Additional Instructions: 1. Take Zofran as prescribed. 2. Follow-up with your primary doctor within 72 hours. 3. Return to the Emergency Department for fever, chest pain, shortness of breath , increasing pain or other worsening of condition. 4. Your infectious disease results are still pending. Please call the hospital in several days to check on the results. Referrals: [facility],. [Clinic] - As per Instructions Prescriptions: Ondansetron Odt [Zofran Odt 4 mg (RX)] 4 mg PO Q4 PRN #10 tab PRN Reason: Nausea/Vomiting, Use 1st Report Scribed for: David Mims Report Scribed by: [place] Bishop Date of Report: 03/21/18 Time of Report: 07:36
[2018-03-21] MEDS ORDERED: NS 1,000 ML IV ONE (07:38)
[2018-03-21] MEDS ORDERED: ONDANSETRON 4 MG/2 ML VIAL IVP ONE (07:38)
[2018-03-21] MEDS: NS 1,000 ML IV ONE (07:49)
[2018-03-21] MEDS ORDERED: IBUPROFEN 800 MG TAB PO ONE (08:45)
[2018-03-21 09:44] VITALS: BP 115/85
[2018-03-22 02:28] LABS: HEPATITIS A ANTIBODY IGM (BCH) NEGATIVE (NEGATIVE); HEPATITIS B CORE AB IGM NEGATIVE (NEGATIVE); HEPATITIS B SURFACE ANTIGEN NEGATIVE (NEGATIVE); HEPATITIS C ANTIBODY TOTAL NEGATIVE (NEGATIVE); HIV TYPE 1 AND 2 NEGATIVE (NEGATIVE)
== END 2018-03-21 09:44 | disposition home or self-care (01) ==
LOC: EDUNIT#
DX: K52.9 Noninfective gastroenteritis and colitis, unspecified (principal); F11.10 Opioid abuse, uncomplicated; E86.9 Volume depletion, unspecified
CPT/HCPCS: 96374; G0472; J2405

== ENCOUNTER 2018-05-27 14:08 | Emergency (ER) | payer MEDICAID ==
[2018-05-27] MEDS ORDERED: ONDANSETRON 4 MG/2 ML VIAL IVP ONE (14:22)
[2018-05-27] MEDS ORDERED: NS 1,000 ML IV ONE (14:22)
[2018-05-27] MEDS ORDERED: KETOROLAC 30 MG/1 ML SDV IVP ONE (14:22)
--- NOTE | 2018-05-27 14:25 | EDPHY ---
H & P Stated Complaint: Nausea, vomiting, diarrhea x 1 day Source: Patient Exam Limitations: No limitations - Personal History LMP (Females 10-55): Extended Cycle BCP/Inj Current Tetanus Diphtheria and Acellular Pertussis (TDAP): Yes Tetanus Vaccine Date: within 10 years - Medical/Surgical History Hx Asthma: Yes Hx Chronic Respiratory Disease: No Hx Diabetes: No Hx Cardiac Disease: No Hx Renal Disease: No Hx Cirrhosis: No Hx Alcoholism: No Hx HIV/AIDS: No Hx Splenectomy or Spleen Trauma: No Other PMH: Asthma, depression, IV drug use/heroin/meth smoke thc, PTSD - Family History Significant Family History: No pertinent family hx - Social History Smoking Status: Current every day smoker Alcohol Use: Sober Time Seen by Provider: 05/27/18 14:15 HPI/ROS: CHIEF COMPLAINT: Nausea, vomiting and diarrhea HISTORY OF PRESENT ILLNESS: The patient is a 22-year-old female with a history of asthma, depression and previous history of IV drug abuse who is been sober for over a month. She felt fine yesterday but today developed nausea vomiting and diarrhea. She has vomited several times nonbloody. Loose stool nonbloody. Not watery. No recent travel. No fevers. She complains of left upper quadrant cramping. No pain or tenderness. She denies risk of . She states that she is on the Depo shot. No urinary symptoms. No vaginal bleeding or discharge. She does reported friend who is recently ill as well. Severity: Moderate Modifying factors: None REVIEW OF SYSTEMS: Constitutional: denies: chills, fever, recent illness, recent injury EENTM: denies: blurred vision, double vision, nose congestion Respiratory: denies: cough, shortness of breath Cardiac: denies: chest pain, irregular heart rate, lightheadedness, palpitations Gastrointestinal/Abdominal: See HPI denies: blood streaked stools Genitourinary: denies: dysuria, frequency, hematuria, pain Musculoskeletal: denies: joint pain, muscle pain Skin: denies: lesions, rash, jaundice, bruising Neurological: denies: headache, numbness, paresthesia, tingling, dizziness, weakness Hematologic/Lymphatic: denies: blood clots, easy bleeding, easy bruising Immunologic/allergic: denies: HIV/AIDS, transplant 10 systems reviewed and negative except as noted EXAM: GENERAL: Well-appearing, well-nourished and in no acute distress. HEAD: Atraumatic, normocephalic. EYES: Pupils equal round and reactive to light, extraocular movements intact, sclera anicteric, conjunctiva are normal. ENT: TMs normal, nares patent, oropharynx clear without exudates. Moist mucous membranes. NECK: Normal range of motion, supple without lymphadenopathy or JVD. LUNGS: Breath sounds clear to auscultation bilaterally and equal. No wheezes rales or rhonchi. HEART: Regular rate and rhythm without murmurs, rubs or gallops. ABDOMEN: Soft, nontender, normoactive bowel sounds. No guarding, no rebound. No masses appreciated. BACK: No CVA tenderness, no spinal tenderness, step-offs or deformities EXTREMITIES: Normal range of motion, no pitting or edema. No clubbing or cyanosis. NEUROLOGICAL: Cranial nerves II through XII grossly intact. Normal speech, normal gait. 5/5 strength, normal movement in all extremities, normal sensation , normal reflexes PSYCH: Normal mood, normal affect. SKIN: Warm, dry, normal turgor, no visible rashes or lesions. (Xander qAuino) Constitutional: Initial Vital Signs Temperature (C) 37.2 C 05/27/18 14:14 Heart Rate 92 05/27/18 14:14 Respiratory Rate 16 05/27/18 14:14 Blood Pressure 138/77 H 05/27/18 14:14 O2 Sat (%) 96 05/27/18 14:14 O2 Delivery Mode Room Air Allergies/Adverse Reactions: No Known Allergies Allergy (Verified 05/27/18 14:16) Home Medications: Medication Instructions Recorded Ondansetron Odt [Zofran Odt 4 mg 4 mg PO Q4 PRN #20 tab 05/27/18 (RX)] Prozac 10 MG (*) 05/27/18 Seroquel 05/27/18 Medical Decision Making ED Course/Re-evaluation: I assumed care of the patient pending re-evaluation after fluids and medications. On re-evaluation patient was feeling better. She is able to tolerate oral fluids without difficulty. She desires to go home. We discussed return precautions. The patient was discharged home in improved condition. ( Chantel Hyatt) 2:50 p.m. the patient is doing well. She states that her cramping has resolved. She is not currently nauseous. She is receiving IV fluids. Will continue to observe. Repeat abdominal exam is benign. Care transferred to Dr. Chantel Mclain (Xander Aquino) Differential Diagnosis: Partial list of the Differential diagnosis considered include but were not limited to; gastroenteritis, dehydration and although unlikely based on the history and physical exam, I also considered the obstruction, ischemia, volvulus , appendicitis, biliary disease, perforation. I discussed these differential diagnoses and the plan with the patient as well as the usual and expected course. The patient understands that the diagnosis is provisional and that in medicine we are not always correct and that further workup is often warranted. Usual and customary warnings were given. All of the patient's questions were answered. The patient was instructed to return to the emergency department should the symptoms at all worsen or return, otherwise to followup with the physician as we discussed. (Xander Aquino) - Data Points Medications Given: Discontinued Medications Sodium Chloride (Ns) 1,000 mls @ 0 mls/hr IV EDNOW ONE; Wide Open PRN Reason: Protocol Stop: 05/27/18 14:23 Last Admin: 05/27/18 14:35 Dose: 1,000 mls Ketorolac Tromethamine (Toradol) 15 mg IVP EDNOW ONE Stop: 05/27/18 14:23 Last Admin: 05/27/18 14:39 Dose: 15 mg Ondansetron HCl (Zofran) 4 mg IVP EDNOW ONE Stop: 05/27/18 14:23 Last Admin: 05/27/18 14:35 Dose: 4 mg Departure - Departure Disposition: Home, Routine, Self-Care Clinical Impression: Gastroenteritis, Dehydration Condition: Fair Instructions: Dehydration (ED), Gastroenteritis (ED) Referrals: [facility],. [Primary Care Provider] - As per Instructions Stand Alone Forms: Work Excuse Prescriptions: Ondansetron Odt [Zofran Odt 4 mg (RX)] 4 mg PO Q4 PRN #20 tab PRN Reason: Nausea & Vomiting
[2018-05-27 15:43] VITALS: BP 116/73
== END 2018-05-27 15:34 | disposition home or self-care (01) ==
LOC: CED 14:08
DX: K52.9 Noninfective gastroenteritis and colitis, unspecified (principal); E86.0 Dehydration
CPT/HCPCS: 96361-ER; 96374-ER; 96375-ER; 99284-ER; J1885; J2405

== ENCOUNTER 2018-06-06 14:27 | Emergency (ER) | payer MEDICAID ==
[2018-06-06] MEDS ORDERED: IPRATROPIUM/ALBUTEROL 3 ML DEYVIAL IH ONE (14:38)
--- NOTE | 2018-06-06 15:14 | EDPHY ---
H & P Time Seen by Provider: 06/06/18 14:39 HPI/ROS: CHIEF COMPLAINT: Shortness of breath HISTORY OF PRESENT ILLNESS: Patient states about 3 days ago she developed upper respiratory infectious symptoms. She states she had some congestion and sore throat. About a day later she started having increased wheezing but no cough. Wheezing has continued since then and she took her last albuterol inhaler puff today. She denies any fevers, rash, nausea or vomiting. She does have some malaise she tells me. She was given a DuoNeb prior to my evaluation emergency department. Contents of 10 point review of systems otherwise negative except for what is mentioned in HPI. General Appearance: Alert, no distress. Eyes: Pupils equal and round no pallor or injection. ENT, Mouth: Mucous membranes moist. Respiratory: There are no retractions, lungs are clear to auscultation. Cardiovascular: Regular rate and rhythm. Gastrointestinal: Abdomen is soft and nontender, no masses, bowel sounds normal. Neurological: Awake, alert, no focal deficits. Skin: Warm and dry, no rashes. Musculoskeletal: Neck is supple nontender. Extremities are symmetrical, full range of motion, no edema. Psychiatric: Patient is oriented X 3, there is no agitation. Medical/surgical history: Asthma, depression, PTSD, history of IV drug use, heroin, methamphetamines. Social history: Smokes tobacco and cannabis. Smoking Status: Heavy smoker Constitutional: Initial Vital Signs Temperature (C) 37.4 C 06/06/18 14:33 Heart Rate 98 06/06/18 14:33 Respiratory Rate 20 06/06/18 14:33 Blood Pressure 137/90 H 06/06/18 14:33 O2 Sat (%) 97 06/06/18 14:33 O2 Delivery Mode Room Air Allergies/Adverse Reactions: No Known Allergies Allergy (Verified 05/27/18 14:16) Home Medications: Medication Instructions Recorded Prozac 10 MG (*) 05/27/18 Seroquel 05/27/18 Albuterol Hfa Anes Only [Proair 200 puffs IH PRN PRN 30 Days #1 mdi 06/06/18 Hfa Icu (*)] Depo-Provera 150 mg/ml (*) 06/06/18 Vivitrol 06/06/18 Medical Decision Making Differential Diagnosis: Differential diagnosis includes but is not limited to asthma exacerbation, upper respiratory infection, pneumonia, strep pharyngitis. After evaluation patient well appearing and wheezing completely resolved after single DuoNeb. No indication for steroids. Did write prescription for albuterol inhaler as patient is out and referred her to her primary care for further refills as needed. Stable for discharge. - Data Points Medications Given: Discontinued Medications Albuterol/Ipratropium (Duoneb) 3 ml IH EDNOW ONE Stop: 06/06/18 14:39 Last Admin: 06/06/18 14:41 Dose: 3 ml Departure - Departure Clinical Impression: Exacerbation of asthma Qualifiers: Asthma severity: mild Asthma persistence: intermittent Qualified Code(s): J45.21 - Mild intermittent asthma with (acute) exacerbation Condition: Good Instructions: Asthma (ED) Additional Instructions: Arturo prescription for albuterol today and use as discussed. Several puffs a day over the next few days while you are sick is fine otherwise it is for rescue use. Referrals: NONE *PRIMARY CARE P,. [Primary Care Provider] - As per Instructions [facility],. [Clinic] - As per Instructions Prescriptions: Albuterol Hfa Anes Only [Proair Hfa Icu (*)] 200 puffs IH PRN PRN 30 Days #1 mdi PRN Reason: Wheezing
[2018-06-06 15:31] VITALS: BP 124/83
== END 2018-06-06 15:32 | disposition home or self-care (01) ==
LOC: CED 14:27
DX: J45.21 Mild intermittent asthma with (acute) exacerbation (principal); F32.9 Major depressive disorder, single episode, unspecified; F43.10 Post-traumatic stress disorder, unspecified; F17.200 Nicotine dependence, unspecified, uncomplicated
CPT/HCPCS: 99283-ER

== ENCOUNTER 2018-06-08 13:13 | Emergency (ER) | payer MEDICAID ==
[2018-06-08 13:20] VITALS: BP 117/79
--- NOTE | 2018-06-08 13:51 | EDPHY ---
H & P Stated Complaint: sore throat Time Seen by Provider: 06/08/18 13:50 - Personal History LMP (Females 10-55): Over 28 Days Ago Current Tetanus Diphtheria and Acellular Pertussis (TDAP): Yes Tetanus Vaccine Date: within 10 years - Medical/Surgical History Hx Asthma: Yes Hx Chronic Respiratory Disease: No Hx Diabetes: No Hx Cardiac Disease: No Hx Renal Disease: No Hx Cirrhosis: No Hx Alcoholism: No Hx HIV/AIDS: No Hx Splenectomy or Spleen Trauma: No Other PMH: Asthma, depression, IV drug use/heroin/meth smoke thc, PTSD - Social History Smoking Status: Light smoker Constitutional: Initial Vital Signs Temperature (C) 37.1 C 06/08/18 13:17 Heart Rate 110 H 06/08/18 13:17 Respiratory Rate 18 06/08/18 13:17 Blood Pressure 117/79 06/08/18 13:17 O2 Sat (%) 96 06/08/18 13:17 O2 Delivery Mode Room Air Allergies/Adverse Reactions: No Known Allergies Allergy (Verified 05/27/18 14:16) Home Medications: Medication Instructions Recorded Prozac 10 MG (*) 05/27/18 Seroquel 05/27/18 Albuterol Hfa Anes Only [Proair 200 puffs IH PRN PRN 30 Days #1 mdi 06/06/18 Hfa Icu (*)] Depo-Provera 150 mg/ml (*) 06/06/18 Vivitrol 06/06/18 Cephalexin [Keflex (RX)] 500 mg PO TID #30 cap 06/08/18 Medical Decision Making ED Course/Re-evaluation: CHIEF COMPLAINT: Sore throat HISTORY OF PRESENT ILLNESS: The patient is a 22 y/o female with a history of drug abuse complaining of a sore throat onset several days ago. Due to this sore throat she has had some difficulty swallowing. No headache, chest pain, shortness of breath, abdominal pain, urinary or bowel complaints, numbness, paresthesias. REVIEW OF SYSTEMS: A comprehensive 10 system review of systems is otherwise negative aside from elements mentioned in the history of present illness and medical decision making. PHYSICAL EXAM: HR, BP, O2 Sat, RR. Temp noted General Appearance: Alert, well hydrated, appropriate, and non-toxic appearing. Head: Atraumatic without scalp tenderness or obvious injury Eyes: Pupils equal, round, reactive to light and accommodation, EOMI, no trauma , no injection. Ears: Clear bilaterally, no perforation, normal landmarks Nose: Atraumatic, no rhinorrhea, clear. Throat: Right tonsillar erythema and exudates, no Ketalar signs, no abscess, no lesions, mucus membranes moist. Neck: Supple, 2+ carotid upstroke, nontender, no lymphadenopathy. Respiratory: No retractions, no distress, no wheezes, and no accessory muscle use. Lungs are clear to auscultation bilaterally. Cardiovascular: Regular rate and rhythm, no murmurs, rubs, or gallops. Bilateral carotid, radial, dorsalis pedis, and posterior tibial pulses intact. Good capillary refill all extremities. Gastrointestinal: Abdomen is soft, nontender, non-distended, no masses, no rebound, no guarding, no peritoneal signs. Musculoskeletal: Normal active ROM of all extremities, atraumatic. Neurological: Alert, appropriate, and interactive. The patient has normal DTRs and non-focal cranial nerves, motor, sensory, and cerebellar exam. Skin: No rashes, good turgor, no nodules on palpation. Past medical history: Asthma, depression, IV drug use/heroin/meth smoke thc, PTSD Past surgical history: Denies Family history: Denies Social history: Works at [employer], single, lives in [place] DIAGNOSTICS/PROCEDURES/CRITICAL CARE TIME: Not indicated. DIFFERENTIAL DIAGNOSIS: The differential diagnosis for the patient's fever and sore throat included but was not limited to pharyngitis, viral syndrome, meningitis, and sepsis. MEDICAL DECISION MAKING: The patient is a 22 y/o female with a history of drug abuse presenting with a sore throat onset several days ago. On exam she has right tonsillar erythema and exudates.There are no Ketalar signs or abscesses. 500mg PO Keflex and 8mg PO Decadron administered prior to discharge. Laboratory and imaging studies are not indicated. I have prescribed her a course of Keflex and advised her to follow up with her PCP. Return precautions provided; patient is comfortable with this plan. Departure - Departure Disposition: Home, Routine, Self-Care Clinical Impression: Acute pharyngitis Qualifiers: Pharyngitis/tonsillitis etiology: other specified organisms Qualified Code(s): J02.8 - Acute pharyngitis due to other specified organisms Condition: Good Instructions: Pharyngitis (ED), Strep Throat (ED) Additional Instructions: 1. Take Keflex as prescribed. 2. Follow-up with your primary doctor within 72 hours. 3. Return to the Emergency Department for high fever, difficulty swallowing, difficulty tolerating liquids, neck pain or stiffness, shortness of breath or other concerns. 4. Use Tylenol and/or ibuprofen as directed for pain. 5. Drink plenty of fluids. Referrals: [facility],. [Clinic] - As per Instructions Stand Alone Forms: Work Excuse Prescriptions: Cephalexin [Keflex (RX)] 500 mg PO TID #30 cap Report Scribed for: David Mims Report Scribed by: [place]ia Bishop Date of Report: 06/08/18 Time of Report: 13:59
[2018-06-08] MEDS ORDERED: DEXAMETHASONE 10 MG/ML VIAL PO ONE (13:55)
[2018-06-08] MEDS ORDERED: CEPHALEXIN 500 MG CAP PO ONE (13:55)
== END 2018-06-08 14:05 | disposition home or self-care (01) ==
DX: J02.9 Acute pharyngitis, unspecified (principal); J45.909 Unspecified asthma, uncomplicated; F32.9 Major depressive disorder, single episode, unspecified; F43.10 Post-traumatic stress disorder, unspecified; F17.200 Nicotine dependence, unspecified, uncomplicated
CPT/HCPCS: J1100

== ENCOUNTER 2018-09-03 10:18 | Emergency (ER) | payer MEDICAID | END 2018-09-03 11:50 | disposition home or self-care (01) | DX: R11.0 Nausea (principal); F43.20 Adjustment disorder, unspecified; F17.200 Nicotine dependence, unspecified, uncomplicated; F32.9 Major depressive disorder, single episode, unspecified; J45.909 Unspecified asthma, uncomplicated; F11.11 Opioid abuse, in remission ==

== ENCOUNTER 2018-10-20 13:33 | Emergency (ER) | payer MEDICAID | END 2018-10-20 15:42 | disposition home or self-care (01) | LOC: CED 13:33 ==

== ENCOUNTER 2018-10-22 15:21 | Emergency (ER) | payer MEDICAID | END 2018-10-22 16:27 | disposition home or self-care (01) ==